=== PATIENT | female | born 2000 | race Caucasian/White ===

== ENCOUNTER 2019-02-17 08:35 | Emergency (ER) | payer BC ==
[2019-02-17 08:42] VITALS: RESP 18
[2019-02-17] MEDS ORDERED: ONDANSETRON 4 MG/2 ML VIAL IVP STA (08:55)
[2019-02-17] MEDS ORDERED: SODIUM CHLORIDE 0.9% 1,000 ML IV STA (08:55)
[2019-02-17] MEDS ORDERED: KETOROLAC 30 MG/ML 1 ML VIAL IVP STA (08:55)
[2019-02-17 09:15] LABS: Appearance,Urine Clear (Clear); Bilirubin,Urine Negative (Negative); Blood,Urine Negative (Negative); Color,Urine Colorless; Glucose,Urine (UA) Negative (Negative); Ketones,Urine Negative (Negative); Leukocyte Esterase,Urine Negative (Negative); Nitrite,Urine Negative (Negative); Protein,Urine Negative (Negative); Specific Gravity,Urine 1.002 (1.001-1.035); Urobilinogen,Urine <2.0 mg/dL (<2.0)
[2019-02-17 09:18] LABS: Basophils # (A) 0.1 k/uL (0-0.2); Basophils % (A) 1 %; Eosinophils # (A) 0.3 k/uL (0-0.7); Eosinophils % (A) 5 %; HCT 42.3 % (34.0-46.0); HGB 14.1 gm/dL (11.4-16.0); Lymphocytes # (A) 1.9 k/uL (1.0-4.8); Lymphocytes % (A) 33 %; MCH 29.8 pg (25.0-35.0); MCHC 33.4 g/dL (31.0-37.0); MCV 89.2 fL (80.0-100.0); Mean Platelet Volume 6.7; Monocytes # (A) 0.3 k/uL (0-1.0); Monocytes % (A) 5 %; Neutrophils # (A) 3.1 k/uL (1.3-7.7); Neutrophils % (A) 54 %; Platelet Count 213 k/uL (150-450); RBC 4.74 m/uL (3.80-5.40); WBC 5.8 k/uL (4.0-11.0)
--- NOTE | 2019-02-17 09:25 | ED ---
Abdominal Pain HPI - General Chief Complaint: Abdominal Pain Stated Complaint: Nausea/sharp abd pain Time Seen by Provider: 02/17/19 08:44 Source: patient Mode of arrival: ambulatory Limitations: no limitations - History of Present Illness Initial Comments: This 18-year-old female presents with a complaint of some abdominal pain and nausea. She states that she has had this for well over a year. It is intermittent in nature. She states that it is present primarily in her mid abdominal region. She denies any fevers, chills, constipation, diarrhea, or urinary symptoms. She does not believe she is as she took a home test a couple days ago and this was negative. She states that she saw her primary care physician and they prescribed. Nasal spray. She denies any other complaints or modifying factors. - Related Data Previous Rx's Medication Instructions Recorded Dicyclomine [Bentyl] 20 mg PO QID PRN #20 tablet 02/17/19 Ondansetron [Zofran] 4 mg PO Q8HR PRN #12 tab 02/17/19 Allergies Allergy/AdvReac Type Severity Reaction Status Date / Time No Known Allergies Allergy Verified 02/17/19 09:05 Review of Systems ROS Statement: Those systems with pertinent positive or pertinent negative responses have been documented in the HPI. ROS Other: All systems not noted in ROS Statement are negative. Past Medical History Past Medical History: No Reported History History of Any Multi-Drug Resistant Organisms: None Reported Past Surgical History: No Surgical Hx Reported Past Psychological History: Depression Smoking Status: Never smoker Past Alcohol Use History: None Reported Past Drug Use History: Marijuana General Exam - General Exam Comments Initial Comments: GENERAL: The patient is well nourished and well hydrated. VITAL SIGNS: Heart rate, blood pressure, respiratory rate reviewed as recorded in nurse's notes. EYES: Pupils are round and reactive. Extraocular movements are intact. No conjunctival / lid redness or swelling. ENT: No external evidence of injury, swelling, or ecchymosis. Airway is patent. Throat is clear. NECK: Nontender. No swelling or evidence of injury. No subcutaneous emphysema. Trachea is midline. No thyroid mass. HEART: Regular rate and rhythm. Good peripheral pulses. LUNGS/CHEST: Breath sounds clear and equal bilaterally. No rales, rhonchi, or wheezes. No ecchymosis, subcutaneous emphysema, or tenderness. ABDOMEN: There is very minimal tenderness present in the mid abdomen. No palpable masses or organomegaly. No peritoneal signs. No abdominal wall swelling or ecchymosis. EXTREMITIES: No extremity tenderness. Normal muscle tone and function. No thoracolumbar tenderness. NEUROLOGIC: Sensation is grossly intact. Cranial nerve exam reveals face is symmetrical, tongue is midline, speech is clear. SKIN: No abrasions or ecchymosis is noted. No induration or masses noted. PSYCHIATRIC: Alert and oriented. Appropriate behavior and judgment. Limitations: no limitations Course Vital Signs 02/17/19 08:38 Temperature 98.7 F Pulse Rate 96 Respiratory 18 Rate Blood Pressure 114/78 O2 Sat by Pulse 99 Oximetry Medical Decision Making - Medical Decision Making The patient was seen and examined. All diagnostics are reviewed. An IV is established and she receives Toradol and Zofran intravenously. The laboratory and urine all came back essentially within normal limits. The computed tomography scan of the abdomen and pelvis was negative for any acute process. She is in no distress on recheck. The exact cause of her symptoms are not definitively determined. There is a significant degree of chronicity. It is f elt as though the heart fairly consistent with irritable bowel syndrome. It is felt as though she stable for discharge and close follow-up. - Lab Data Result diagrams: 02/17/19 08:58 02/17/19 08:58 Lab Results 02/17/19 02/17/19 02/17/19 Range/Units 08:58 08:58 09:02 WBC 5.8 (4.0-11.0) k/uL RBC 4.74 (3.80-5.40) m/uL Hgb 14.1 (11.4-16.0) gm/dL Hct 42.3 (34.0-46.0) % MCV 89.2 (80.0-100.0) fL MCH 29.8 (25.0-35.0) pg MCHC 33.4 (31.0-37.0) g/dL RDW 12.0 (11.5-15.5) % Plt Count 213 (150-450) k/uL Neutrophils % 54 % Lymphocytes % 33 % Monocytes % 5 % Eosinophils % 5 % Basophils % 1 % Neutrophils # 3.1 (1.3-7.7) k/uL Lymphocytes # 1.9 (1.0-4.8) k/uL Monocytes # 0.3 (0-1.0) k/uL Eosinophils # 0.3 (0-0.7) k/uL Basophils # 0.1 (0-0.2) k/uL Sodium 141 (137-145) mmol/L Potassium 4.6 (3.5-5.1) mmol/L Chloride 105 (98-107) mmol/L Carbon Dioxide 27 (22-30) mmol/L Anion Gap 9 mmol/L BUN 15 (7-17) mg/dL Creatinine 0.79 (0.52-1.04) mg/dL Est GFR (CKD-EPI)AfAm >90 (>60 ml/min/1.73 sqM) Est GFR (CKD-EPI)NonAf >90 (>60 ml/min/1.73 sqM) Glucose 99 (74-99) mg/dL Calcium 9.6 (8.4-10.2) mg/dL Total Bilirubin 0.8 (0.2-1.3) mg/dL AST 15 (14-36) U/L ALT 14 (9-52) U/L Alkaline Phosphatase 49 (38-126) U/L Total Protein 7.7 (6.3-8.2) g/dL Albumin 4.5 (3.5-5.0) g/dL Lipase 83 (23-300) U/L Urine Color Urine Appearance (Clear) Urine pH (5.0-8.0) Ur Specific [place] (1.001-1.035) Urine Protein (Negative) Urine Glucose (UA) (Negative) Urine Ketones (Negative) Urine Blood (Negative) Urine Nitrite (Negative) Urine Bilirubin (Negative) Urine Urobilinogen (<2.0) mg/dL Ur Leukocyte Esterase (Negative) Urine HCG, Qual Not Detected (Not Detectd) 02/17/19 Range/Units 09:02 WBC (4.0-11.0) k/uL RBC (3.80-5.40) m/uL Hgb (11.4-16.0) gm/dL Hct (34.0-46.0) % MCV (80.0-100.0) fL MCH (25.0-35.0) pg MCHC (31.0-37.0) g/dL RDW (11.5-15.5) % Plt Count (150-450) k/uL Neutrophils % % Lymphocytes % % Monocytes % % Eosinophils % % Basophils % % Neutrophils # (1.3-7.7) k/uL Lymphocytes # (1.0-4.8) k/uL Monocytes # (0-1.0) k/uL Eosinophils # (0-0.7) k/uL Basophils # (0-0.2) k/uL Sodium (137-145) mmol/L Potassium (3.5-5.1) mmol/L Chloride (98-107) mmol/L Carbon Dioxide (22-30) mmol/L Anion Gap mmol/L BUN (7-17) mg/dL Creatinine (0.52-1.04) mg/dL Est GFR (CKD-EPI)AfAm (>60 ml/min/1.73 sqM) Est GFR (CKD-EPI)NonAf (>60 ml/min/1.73 sqM) Glucose (74-99) mg/dL Calcium (8.4-10.2) mg/dL Total Bilirubin (0.2-1.3) mg/dL AST (14-36) U/L ALT (9-52) U/L Alkaline Phosphatase (38-126) U/L Total Protein (6.3-8.2) g/dL Albumin (3.5-5.0) g/dL Lipase (23-300) U/L Urine Color Colorless Urine Appearance Clear (Clear) Urine pH 7.0 (5.0-8.0) Ur Specific [place] 1.002 (1.001-1.035) Urine Protein Negative (Negative) Urine Glucose (UA) Negative (Negative) Urine Ketones Negative (Negative) Urine Blood Negative (Negative) Urine Nitrite Negative (Negative) Urine Bilirubin Negative (Negative) Urine Urobilinogen <2.0 (<2.0) mg/dL Ur Leukocyte Esterase Negative (Negative) Urine HCG, Qual (Not Detectd) Disposition Clinical Impression: Abdominal pain, Nausea, Irritable bowel syndrome Disposition: HOME SELF-CARE Condition: Good Instructions (If sedation given, give patient instructions): Abdominal Pain (ED), Irritable Bowel Syndrome (ED), Acute Nausea and Vomiting (ED) Prescriptions: Dicyclomine [Bentyl] 20 mg PO QID PRN #20 tablet PRN Reason: Pain Ondansetron [Zofran] 4 mg PO Q8HR PRN #12 tab PRN Reason: Nausea Is patient prescribed a controlled substance at d/c from ED?: No Referrals: Lise Rizzo III, MD [Primary Care Provider] - 1-2 days Time of Disposition: 10:22
[2019-02-17 09:30] LABS: ALT 14 U/L (9-52); AST 15 U/L (14-36); African American GFR (CKD) >90 (>60 ml/min/1.73 sqM); Albumin 4.5 g/dL (3.5-5.0); Alkaline Phosphatase 49 U/L (38-126); Anion Gap 9 mmol/L; Blood Urea Nitrogen 15 mg/dL (7-17); Calcium 9.6 mg/dL (8.4-10.2); Carbon Dioxide 27 mmol/L (22-30); Chloride 105 mmol/L (98-107); Glucose 99 mg/dL (74-99); Potassium 4.6 mmol/L (3.5-5.1); Sodium 141 mmol/L (137-145); Total Bilirubin 0.8 mg/dL (0.2-1.3); Total Protein 7.7 g/dL (6.3-8.2)
--- NOTE | 2019-02-17 10:13 | CT ---
EXAMINATION TYPE: CT abdomen pelvis w con DATE OF EXAM: 02/17/2019 HISTORY: Nausea and sharp abdominal pain, below belly button CT DLP: 1514.8mGycm Automated Exposure Control for Dose Reduction was Utilized. CONTRAST: CT scan of the abdomen and pelvis is performed without oral but with IV Contrast, patient injected wi th 100 mL of Isovue 300. COMPARISON: None FINDINGS: LUNG BASES: No significant abnormality is appreciated. LIVER/GB: No significant abnormality is appreciated. PANCREAS: No significant abnormality is seen. SPLEEN: No significant abnormality is seen. ADRENALS: No significant abnormality is seen. KIDNEYS: No significant abnormality is seen. BOWEL: Evaluation bowel suboptimal secondary to lack of enteric contrast. No suspicious small or larg e bowel dilatation. Normal gas-filled appendix posteriorly from the cecum UTERUS/ADNEXA: Anteverted uterus. No adnexal masses. LYMPH NODES: No greater than 1cm abdominal or pelvic lymph nodes are appreciated. OSSEOUS STRUCTURES: No significant abnormality is seen. OTHER: No suspicious mass or hernia in the anterior abdominal wall. IMPRESSION: No significant acute finding is seen to account for patient's clinical symptoms.
[2019-02-17 10:36] VITALS: BP 111/62; PULSE 72; TEMP 98.1
== END 2019-02-17 10:32 | disposition home or self-care (01) ==
LOC: EC 08:35
DX: K58.9 Irritable bowel syndrome, unspecified (principal); Z32.02 Encounter for pregnancy test, result negative
CPT/HCPCS: 36415; 80053; 83690; 85025; 81003; 81025; 74177; 99284; 96360; Q9967

== ENCOUNTER 2019-08-19 04:50 | Emergency (ER) | payer BC ==
--- NOTE | 2019-08-19 06:01 | ED ---
Female Urogenital HPI - General Chief complaint: Vaginal Bleeding Stated complaint: vaginal bleeding,5 wk preg Time Seen by Provider: 08/19/19 04:58 Source: patient Mode of arrival: ambulatory Limitations: no limitations - History of Present Illness Initial comments: This patient is a 18 year old woman who presents to be evaluated for vaginal bleeding. The patient states that she is a G1, P0 lady. She recently took a home test that was positive and estimates that she is approximately 5 weeks . She has not had any care. She did start a vitamin. The patient states that over the past few days she had been having some suprapubic cramping that she felt was related to , and for which she did not seek any medical attention. She states that over the course of last night and today when she urinated she did note a couple of small blood clots and then there was some trace of pink on the paper when wiping. On further review, the patient states that a few weeks ago her boyfriend had been treated for epididymitis. She did not have any testing or treatment related to that. MD Complaint: vaginal bleeding -: hour(s) Location: suprapubic Severity: mild Quality: cramping Consistency: intermittent Improves with: none Worsens with: none Last Menstrual Period: 07/11/19 Patient : Yes Number of weeks : 5 Associated Symptoms: denies other symptoms, vaginal bleeding - Related Data Sexually active: Yes : 1 Para: 0 A: 0 Allergies Allergy/AdvReac Type Severity Reaction Status Date / Time No Known Allergies Allergy Verified 08/19/19 05:02 Review of Systems ROS Statement: Those systems with pertinent positive or pertinent negative responses have been documented in the HPI. ROS Other: All systems not noted in ROS Statement are negative. Constitutional: Denies: fever, chills Respiratory: Denies: cough, dyspnea Cardiovascular: Denies: chest pain Gastrointestinal: Reports: as per HPI, abdominal pain. Denies: nausea, vomiting, diarrhea, constipation Genitourinary: Reports: frequency, abnormal menses. Denies: dysuria, hematuria, discharge, dyspareunia Musculoskeletal: Denies: back pain Skin: Denies: rash Hematological/Lymphatic: Denies: easy bleeding Past Medical History Past Medical History: No Reported History History of Any Multi-Drug Resistant Organisms: None Reported Past Surgical History: No Surgical Hx Reported Past Psychological History: Depression Smoking Status: Former smoker Past Alcohol Use History: None Reported Past Drug Use History: Marijuana General Exam Limitations: no limitations General appearance: alert, in no apparent distress Head exam: Present: atraumatic, normocephalic Eye exam: Present: normal appearance. Absent: scleral icterus, conjunctival injection ENT exam: Present: normal oropharynx Respiratory exam: Present: normal lung sounds bilaterally. Absent: respiratory distress, wheezes, rales, rhonchi, stridor Cardiovascular Exam: Present: regular rate, normal rhythm, normal heart sounds. Absent: systolic murmur, diastolic murmur, rubs, gallop GI/Abdominal exam: Present: soft. Absent: distended, tenderness, guarding, rebound, rigid, mass External exam: Present: normal external exam. Absent: erythema, swelling, lesions, lacerations, ecchymosis, other Speculum exam: Present: normal speculum exam, vaginal bleeding (Trace amount of blood but no active cervical bleeding). Absent: erythema, vaginal discharge, cervical discharge, foreign body, tissue, laceration By manual exam: Present: normal by manual exam. Absent: cervical motion tenderness, adnexal tenderness, adnexal mass, uterine tenderness Extremities exam: Present: normal inspection Skin exam: Present: warm, dry, intact, normal color. Absent: rash Course Vital Signs 08/19/19 04:53 Temperature 98.0 F Pulse Rate 84 Respiratory 18 Rate Blood Pressure 126/69 O2 Sat by Pulse 100 Oximetry Medical Decision Making - Medical Decision Making 's patient is a 18-year-old woman with a small amount of vaginal bleeding in early . Her hCG indicates probably early versus possible miscarriage. I discussed results with the patient and at this point she is feeling asymptomatic and would like to go home. We discussed serial hCG and returning for ultrasound as the hCG level rises, or returning for ultrasound immediately if she has a recurrence of pelvic pain, increased bleeding, or other symptoms discussed. I discussed appropriate further care and follow-up as well as return parameters. Given the patient's possible STI exposure we discussed waiting for results versus empiric treatment and the patient does elect empiric treatment. - Lab Data Lab Results 08/19/19 08/19/19 08/19/19 Range/Units 05:40 05:40 05:51 HCG, Quant 181.5 mIU/mL Trichomonas Ag (Rapid) Negative (Negative) Blood Type A Negative Blood Type Recheck No Previous Record Bld Type Recheck Status [facility] ONLY Disposition Clinical Impression: Threatened Disposition: HOME SELF-CARE Condition: Good Instructions (If sedation given, give patient instructions): Threatened Miscarriage (ED) Is patient prescribed a controlled substance at d/c from ED?: No Referrals: None,Stated [Primary Care Provider] - 1-2 days Chandler Larios DO [Doctor of Osteopathic Medicine] - 1-2 days
[2019-08-19] MEDS ORDERED: cefTRIAXone 250 MG VIAL IM STA (06:19)
[2019-08-19] MEDS ORDERED: AZITHROMYCIN 250 MG TAB PO STA (06:19)
[2019-08-19 07:17] VITALS: BP 123/77; PULSE 94; RESP 16; TEMP 98.4
== END 2019-08-19 07:19 | disposition home or self-care (01) ==
LOC: EC 04:50
DX: O20.0 Threatened abortion (principal); Z87.891 Personal history of nicotine dependence; Z3A.01 Less than 8 weeks gestation of pregnancy
CPT/HCPCS: 36415; 86900; 86901; 84702; 87808; 87491; 87591; 87070; 96372; 99284; J0696

== ENCOUNTER 2019-08-20 15:13 | Emergency (ER) | payer BC, OTHER ==
[2019-08-20 15:20] VITALS: RESP 18; TEMP 98.2
[2019-08-20] MEDS ORDERED: Rhogam IMMUNE GLOBULIN 1,500 UNIT/1 ML IM ONE (16:00)
--- NOTE | 2019-08-20 16:20 | ED ---
Recheck HPI - General Chief Complaint: Recheck/Abnormal Lab/Rx Stated Complaint: abnormal labs Time Seen by Provider: 08/20/19 15:23 Source: patient, RN notes reviewed, old records reviewed Mode of arrival: ambulatory Limitations: no limitations - History of Present Illness Initial Comments: This is a 18-year-old female DF for evaluation patient is here for recheck recheck of vaginal bleeding of withdrawal being Rh-. Patient presents today for secondary to bleeding and being Rh-. Patient currently asymptomatic MD Complaint: abnormal lab (RH-) -: days(s) Returns Today for: Called Because of Abnormal Lab/Test Symptoms Since Prior Visit: no new symptoms Context: called for abnormal lab result Associated Symptoms: none - Related Data Home Medications Medication Instructions Recorded Confirmed Gummies 1 tab PO DAILY 08/20/19 08/20/19 Allergies Allergy/AdvReac Type Severity Reaction Status Date / Time No Known Allergies Allergy Verified 08/20/19 17:30 Review of Systems ROS Statement: Those systems with pertinent positive or pertinent negative responses have been documented in the HPI. ROS Other: All systems not noted in ROS Statement are negative. Past Medical History Past Medical History: No Reported History History of Any Multi-Drug Resistant Organisms: None Reported Past Surgical History: No Surgical Hx Reported Past Psychological History: Depression Smoking Status: Former smoker Past Alcohol Use History: None Reported Past Drug Use History: Marijuana General Exam Limitations: no limitations General appearance: alert, in no apparent distress Head exam: Present: atraumatic, normocephalic, normal inspection Eye exam: Present: normal appearance, PERRL, EOMI. Absent: scleral icterus, conjunctival injection, periorbital swelling ENT exam: Present: normal exam, mucous membranes moist Neck exam: Present: normal inspection. Absent: tenderness, meningismus, lymphad enopathy Respiratory exam: Present: normal lung sounds bilaterally. Absent: respiratory distress, wheezes, rales, rhonchi, stridor Cardiovascular Exam: Present: regular rate, normal rhythm, normal heart sounds. Absent: systolic murmur, diastolic murmur, rubs, gallop, clicks GI/Abdominal exam: Present: soft, normal bowel sounds. Absent: distended, tenderness, guarding, rebound, rigid Extremities exam: Present: normal inspection, full ROM, normal capillary refill. Absent: tenderness, pedal edema, joint swelling, calf tenderness Back exam: Present: normal inspection Neurological exam: Present: alert, oriented X3, CN II-XII intact Psychiatric exam: Present: normal affect, normal mood Skin exam: Present: warm, dry, intact, normal color. Absent: rash Course Vital Signs 08/20/19 15:16 Temperature 98.2 F Pulse Rate 85 Respiratory 18 Rate Blood Pressure 117/79 O2 Sat by Pulse 96 Oximetry - Reevaluation(s) Reevaluation #1: 08/20/19 17:40 Medical record is reviewed Reevaluation #2: 08/20/19 17:40 Patient given injection here in the ER Medical Decision Making - Medical Decision Making 18 female to the ER for evaluation patient presents today for evaluation and need for this is secondary to being Rh- and needing rhogram, also including bleeding in . - Lab Data Lab Results 08/20/19 Range/Units 16:23 Blood Type A Negative Blood Type Recheck A Neg Bld Type Recheck Status No Antibody Screen NEGATIVE Spec Expiration Date 08/23/2019 - 2322 Disposition Clinical Impression: Threatened , Need for rhogam due to Rh negative mother Disposition: HOME SELF-CARE Condition: Good Instructions (If sedation given, give patient instructions): Rh (By injection) Is patient prescribed a controlled substance at d/c from ED?: No Referrals: None,Stated [Primary Care Provider] - 1-2 days
[2019-08-20] MEDS ORDERED: ONDANSETRON ODT 4 MG TAB PO STA (16:58)
[2019-08-20 17:46] VITALS: BP 121/78; PULSE 80
== END 2019-08-20 17:45 | disposition home or self-care (01) ==
LOC: EC 15:13
DX: O20.0 Threatened abortion (principal); Z3A.00 Weeks of gestation of pregnancy not specified; Z29.13 Encounter for prophylactic Rho(D) immune globulin; Z87.891 Personal history of nicotine dependence
CPT/HCPCS: 96372; 99284; 86900; 86901; 86850; J2791

== ENCOUNTER 2019-08-22 05:53 | Emergency (ER) | payer BC, OTHER ==
[2019-08-22 06:05] VITALS: RESP 18; TEMP 98
[2019-08-22 07:03] LABS: Basophils % (A) 1 %; Eosinophils # (A) 0.2 k/uL (0-0.7); Eosinophils % (A) 3 %; HCT 41.2 % (34.0-46.0); HGB 14.1 gm/dL (11.4-16.0); Lymphocytes # (A) 1.9 k/uL (1.0-4.8); Lymphocytes % (A) 29 %; MCH 28.7 pg (25.0-35.0); MCHC 34.2 g/dL (31.0-37.0); MCV 83.9 fL (80.0-100.0); Mean Platelet Volume 8.3; Monocytes # (A) 0.4 k/uL (0-1.0); Monocytes % (A) 6 %; Neutrophils # (A) 3.9 k/uL (1.3-7.7); Neutrophils % (A) 60 %; Platelet Count 186 k/uL (150-450); RBC 4.91 m/uL (3.80-5.40); RDW 12.7 % (11.5-15.5); WBC 6.5 k/uL (4.0-11.0)
[2019-08-22 07:15] LABS: African American GFR (CKD) >90 (>60 ml/min/1.73 sqM); Anion Gap 9 mmol/L; Blood Urea Nitrogen 18 mg/dL (7-17); Calcium 9.6 mg/dL (8.4-10.2); Carbon Dioxide 24 mmol/L (22-30); Chloride 105 mmol/L (98-107); Glucose 95 mg/dL (74-99); Non-African American GFR(CKD) >90 (>60 ml/min/1.73 sqM); Potassium 4.2 mmol/L (3.5-5.1); Sodium 138 mmol/L (137-145)
--- NOTE | 2019-08-22 07:26 | ED ---
General Adult HPI - General Chief complaint: Vaginal Bleeding Stated complaint: vaginal bleeding, 6 wks preg Time Seen by Provider: 08/22/19 06:20 Source: patient, RN notes reviewed, old records reviewed Mode of arrival: ambulatory Limitations: no limitations - History of Present Illness Initial comments: 18-year-old female patient presents to ED for chief complaint of vaginal bleeding. Patient reports that she is approximately 6 weeks by last menstrual period. She reports that she has been seen on the and the for vaginal bleeding. She did have a RhoGAM shot administered. She states that she does have some very mild suprapubic cramping but denies any significant pain. Reports that she has been passing small clots and believes that she may be potentially miscarrying. HCG Quant was 181 on 08/18. She has not had an ultrasound. She denies any other acute complaints. Systemic: Pt denies fatigue, fever/chills, rash. Pt denies weakness, night sweats, weight loss. Neuro: Pt denies headache, visual disturbances, syncope or pre-syncope. HEENT: Pt denies ocular discharge or irritation, otalgia, rhinorrhea, pharyngitis or notable lymphadenopathy. Cardiopulmonary: Pt denies chest pain, SOB, heart palpitations, dyspnea on e xertion. Abdominal/GI: Pt denies n/v/d. : Pt denies dysuria, burning w/ urination, frequency/urgency. Denies new onset urinary or bowel incontinence. MSK: Pt denies myalgia, loss of strength or function in extremities. Neuro: Pt denies new onset weakness, paresthesias. - Related Data Home Medications Medication Instructions Recorded Confirmed Gummies 1 tab PO DAILY 08/20/19 08/20/19 Allergies Allergy/AdvReac Type Severity Reaction Status Date / Time No Known Allergies Allergy Verified 08/20/19 17:30 Review of Systems ROS Statement: Those systems with pertinent positive or pertinent negative responses have been documented in the HPI. ROS Other: All systems not noted in ROS Statement are negative. Past Medical History Past Medical History: No Reported History History of Any Multi-Drug Resistant Organisms: None Reported Past Surgical History: No Surgical Hx Reported Past Psychological History: Depression Smoking Status: Former smoker Past Alcohol Use History: None Reported Past Drug Use History: Marijuana General Exam - General Exam Comments Initial Comments: Constitutional: NAD, AOX3, Pt has pleasant affect. HEENT: NC/AT, trachea midline, External ears appear normal, without discharge. Mucous membranes moist. There is no scleral icterus. No pallor noted. Cardiopulmonary: RRR, no murmurs, rubs or gallops, no JVD noted. Lungs CTAB in anterior and posterior elena. No peripheral edema. Abdominal exam: Abdomen soft and non-distended. Abdomen non-tender to palpation in all 4 quadrants. Bowel sounds active in LLQ. No hepatosplenomegaly. No ecchymosis Neuro: CN II-XII grossly intact. No nuchal rigidity. No raccon eyes, no love sign, Limitations: no limitations Course Vital Signs 08/22/19 05:56 Temperature 98.0 F Pulse Rate 102 H Respiratory 18 Rate Blood Pressure 115/76 O2 Sat by Pulse 100 Oximetry Medical Decision Making - Medical Decision Making 18-year-old female patient presents to ED for chief complaint of vaginal bleeding. Patient reports that she is approximately 6 weeks by last menstrual period. She reports that she has been seen on the and the for vaginal bleeding. She did have a RhoGAM shot administered. She states that she does have some very mild suprapubic cramping but denies any significant pain. Reports that she has been passing small clots and believes that she may be potentially miscarrying. HCG Quant was 181 on 08/18. She has not had an ultrasound. She denies any other acute complaints. Patient also signs are stable, afebrile. Physical exam displayed nontender abdomen. CBC CMP are non- impressive. HCG Quant is 91.9. Decreased in half. Ultrasound identified intrauterine anterior gestation at this time. Short-term follow-up recommended. She does appear to be miscarrying. Patient will be provided 48-hour hCG Quant. Will be given OB follow-up she has already been in contact with. Patient does not currently have PCP, will be referred to a local group. Return to ER if condition worsens. Case discussed with Dr. Bolivar. - Lab Data Result diagrams: 08/22/19 06:58 08/22/19 06:58 Lab Results 08/22/19 08/22/19 Range/Units 06:58 06:58 WBC 6.5 (4.0-11.0) k/uL RBC 4.91 (3.80-5.40) m/uL Hgb 14.1 (11.4-16.0) gm/dL Hct 41.2 (34.0-46.0) % MCV 83.9 (80.0-100.0) fL MCH 28.7 (25.0-35.0) pg MCHC 34.2 (31.0-37.0) g/dL RDW 12.7 (11.5-15.5) % Plt Count 186 (150-450) k/uL Neutrophils % 60 % Lymphocytes % 29 % Monocytes % 6 % Eosinophils % 3 % Basophils % 1 % Neutrophils # 3.9 (1.3-7.7) k/uL Lymphocytes # 1.9 (1.0-4.8) k/uL Monocytes # 0.4 (0-1.0) k/uL Eosinophils # 0.2 (0-0.7) k/uL Basophils # 0.0 (0-0.2) k/uL Sodium 138 (137-145) mmol/L Potassium 4.2 (3.5-5.1) mmol/L Chloride 105 (98-107) mmol/L Carbon Dioxide 24 (22-30) mmol/L Anion Gap 9 mmol/L BUN 18 H (7-17) mg/dL Creatinine 0.77 (0.52-1.04) mg/dL Est GFR (CKD-EPI)AfAm >90 (>60 ml/min/1.73 sqM) Est GFR (CKD-EPI)NonAf >90 (>60 ml/min/1.73 sqM) Glucose 95 (74-99) mg/dL Calcium 9.6 (8.4-10.2) mg/dL HCG, Quant 91.9 mIU/mL Disposition Clinical Impression: Miscarriage Disposition: HOME SELF-CARE Condition: Stable Instructions (If sedation given, give patient instructions): Miscarriage (ED) Additional Instructions: Call [facility] [employer] today. Information is provided. Have repeat blood draw in 48 hours. Results will be sent to [facility] [employer] consult Dr. Alatorre. You will also be provided with a local primary care physician groups information. Return to ER if condition worsens in any way. Is patient prescribed a controlled substance at d/c from ED?: No Referrals: None,Stated [Primary Care Provider] - 1-2 days Luzma Alatorre, [Doctor of Osteopathic Medicine] - 1-2 days
[2019-08-22 07:32] LABS: HCG,Quantitative Serum 91.9 mIU/mL
--- NOTE | 2019-08-22 07:32 | US ---
EXAMINATION TYPE: Transabdominal DATE OF EXAM: 08/22/2019 7:23 AM COMPARISON: NONE CLINICAL HISTORY: pain. EXAM PERFORMED: Transabdominal (TA) EXAM MEASUREMENTS: GESTATIONAL AGE / DATING Physician Established: Not yet established Dates by LMP: (6 weeks/0 days) EDC: 04/16/20 Dates by First Scan: No previous this is first scan Dates by Current Scan for: Unable to date by stacy patel's study MATERNAL ANATOMY Uterus: 8.4 x 3.5 x 4.9cm Right Ovary: 2.6 x 1.2 x 1.1cm Left Ovary: 1.6 x 1.1 x 1.3 Post CDS / Adnexa: wnl GESTATION / SURVEY IUP: No IUP seen at this time Date of LMP: 07/11/19 Beta HcG (if available): Not available at this time IMPRESSION: WE HAVE NOT IDENTIFIED INTRAUTERINE OR EXTRAUTERINE GESTATION AT THIS TIME. SHORT-TERM FOLLOW-UP +/- SERIAL BETA HCGS WOULD BE SUGGESTED.
--- NOTE | 2019-08-22 07:56 | ED ---
Medical Decision Making - Lab Data Result diagrams: 08/22/19 06:58 08/22/19 06:58 Lab Results 08/22/19 08/22/19 Range/Units 06:58 06:58 WBC 6.5 (4.0-11.0) k/uL RBC 4.91 (3.80-5.40) m/uL Hgb 14.1 (11.4-16.0) gm/dL Hct 41.2 (34.0-46.0) % MCV 83.9 (80.0-100.0) fL MCH 28.7 (25.0-35.0) pg MCHC 34.2 (31.0-37.0) g/dL RDW 12.7 (11.5-15.5) % Plt Count 186 (150-450) k/uL Neutrophils % 60 % Lymphocytes % 29 % Monocytes % 6 % Eosinophils % 3 % Basophils % 1 % Neutrophils # 3.9 (1.3-7.7) k/uL Lymphocytes # 1.9 (1.0-4.8) k/uL Monocytes # 0.4 (0-1.0) k/uL Eosinophils # 0.2 (0-0.7) k/uL Basophils # 0.0 (0-0.2) k/uL Sodium 138 (137-145) mmol/L Potassium 4.2 (3.5-5.1) mmol/L Chloride 105 (98-107) mmol/L Carbon Dioxide 24 (22-30) mmol/L Anion Gap 9 mmol/L BUN 18 H (7-17) mg/dL Creatinine 0.77 (0.52-1.04) mg/dL Est GFR (CKD-EPI)AfAm >90 (>60 ml/min/1.73 sqM) Est GFR (CKD-EPI)NonAf >90 (>60 ml/min/1.73 sqM) Glucose 95 (74-99) mg/dL Calcium 9.6 (8.4-10.2) mg/dL HCG, Quant 91.9 mIU/mL Disposition Clinical Impression: Miscarriage Disposition: HOME SELF-CARE Condition: Stable Instructions (If sedation given, give patient instructions): Miscarriage (ED) Additional Instructions: Call [facility] today. Information is provided. Have repeat blood draw in 48 hours. Results will be sent to [facility] consult Dr. Alatorre. You will also be provided with a local primary care physician groups information. Return to ER if condition worsens in any way. Is patient prescribed a controlled substance at d/c from ED?: No Referrals: Luzma Alatorre DO [Doctor of Osteopathic Medicine] - 1-2 days None,Stated [Primary Care Provider] - 1-2 days [facility] [NON-STAFF] - 1-2 days
[2019-08-22 08:10] VITALS: BP 118/72; PULSE 99
== END 2019-08-22 08:14 | disposition home or self-care (01) ==
LOC: EC 05:53
DX: O03.9 Complete or unspecified spontaneous abortion without complication (principal); Z87.891 Personal history of nicotine dependence
CPT/HCPCS: 36415; 76801; 80048; 84702; 85025; 99284

== ENCOUNTER 2021-01-20 17:50 | Emergency (ER) | payer BC, OTHER ==
[2021-01-20 18:22] VITALS: RESP 18
[2021-01-20] MEDS ORDERED: SODIUM CHLORIDE 0.9% 1,000 ML IV STA (19:27)
--- NOTE | 2021-01-20 19:42 | ED ---
General Adult HPI - General Chief complaint: Syncope Stated complaint: 19wks Preg/Syncope/Hit Head Time Seen by Provider: 01/20/21 19:05 Source: patient Mode of arrival: ambulatory Limitations: no limitations - History of Present Illness Initial comments: 20-year-old female, 19 weeks , presenting to the emergency department with a chief complaint of a syncopal episode. Patient reports this occurred while she was at work. Patient reports she was taking orders and then began to feel lightheaded and as she attempted to go sit down, she lost consciousness and neck since she could Romberg or her friend surrounding her after she suffered a syncopal episode. Patient reports his pain in the occipital region of her head. States she otherwise feels a symptom medical at this time aside from pain in the head. Denies any chest pain shortness of breath. Denies any abdominal pain, cramping, vaginal discharge or bleeding or any other symptoms. Denies any visual changes, one-sided weakness or paresthesias. Her OB is Dr. Edwards - Related Data Home Medications Medication Instructions Recorded Confirmed Gummies 1 tab PO DAILY 08/20/19 08/20/19 Allergies Allergy/AdvReac Type Severity Reaction Status Date / Time No Known Allergies Allergy Verified 08/20/19 17:30 Review of Systems ROS Statement: Those systems with pertinent positive or pertinent negative responses have been documented in the HPI. ROS Other: All systems not noted in ROS Statement are negative. Past Medical History Past Medical History: No Reported History History of Any Multi-Drug Resistant Organisms: None Reported Past Surgical History: No Surgical Hx Reported Past Psychological History: Depression Smoking Status: Never smoker Past Alcohol Use History: None Reported Past Drug Use History: Marijuana General Exam Limitations: no limitations General appearance: alert, in no apparent distress Head exam: Present: atraumatic, normocephalic. Absent: normal inspection (Small hematoma on the occipital region of the head), other (Negative Syed sign, raccoon eyes, hemotympanum.) Eye exam: Present: normal appearance, PERRL, EOMI Pupils: Present: normal accommodation ENT exam: Present: normal exam, normal oropharynx, mucous membranes moist, TM's normal bilaterally, normal external ear exam Neck exam: Present: normal inspection, full ROM. Absent: tenderness, lymphadenopathy Respiratory exam: Present: normal lung sounds bilaterally. Absent: respiratory distress Cardiovascular Exam: Present: regular rate, normal rhythm, normal heart sounds. Absent: systolic murmur GI/Abdominal exam: Present: soft. Absent: distended, tenderness Extremities exam: Present: normal inspection, full ROM, normal capillary refill, other (Palpable DP and PT bilaterally). Absent: tenderness, pedal edema, joint swelling, calf tenderness Back exam: Present: normal inspection, full ROM Neurological exam: Present: alert, oriented X3 Psychiatric exam: Present: normal affect, normal mood Skin exam: Present: warm, dry, intact, normal color Course Vital Signs 01/20/21 01/20/21 01/20/21 18:19 19:00 21:22 Temperature 98.6 F 98.0 F Pulse Rate 109 H 76 74 Respiratory 18 18 18 Rate Blood Pressure 120/78 115/75 115/82 O2 Sat by Pulse 97 97 98 Oximetry Medical Decision Making - Medical Decision Making 20-year-old female, 19 weeks , presenting to the emergency department with a chief complaint of a syncopal episode. On physical examination, patient is well appearing and resting comfortably but. No focal ne ural deficits. EKG changes were noted and this was discussed with Dr. Benson recommended further syncopal workup. She does have a small hematoma in the occipital region of the head. CBC shows mild leukocytosis likely reactive secondary to her . She cannot give a urine sample. CMP Un remarkable. HCG Quant is 7400. Troponin is negative. Patient was given 1 L IV bolus fluids. Vital signs are within normal limits. CT imaging of the head was offered to the patient, I did discuss the concern of radiation, she declined imaging. Patient continued to be completely asymptomatic in the emergency department. Her chest pain shortness of breath abdominal or vaginal symptoms. I did offer heart tones to the patient, she declined because she did not want to wait any further and stated that she will return to emergency department if she develops any symptoms. Follow up with her OB advised. Return parameters were thoroughly discussed the patient was understanding and agreeable. Case discussed with Dr. Benson. - Lab Data Result diagrams: 01/20/21 19:29 01/20/21 19:29 Lab Results 01/20/21 01/20/21 01/20/21 Range/Units 19:28 19:29 19:29 WBC 11.4 H (3.8-10.6) k/uL RBC 4.63 (3.80-5.40) m/uL Hgb 14.1 (11.4-16.0) gm/dL Hct 40.7 (34.0-46.0) % MCV 88.1 (80.0-100.0) fL MCH 30.5 (25.0-35.0) pg MCHC 34.6 (31.0-37.0) g/dL RDW 13.0 (11.5-15.5) % Plt Count 233 (150-450) k/uL MPV 9.0 Neutrophils % 81 % Lymphocytes % 13 % Monocytes % 4 % Eosinophils % 1 % Basophils % 0 % Neutrophils # 9.2 H (1.3-7.7) k/uL Lymphocytes # 1.4 (1.0-4.8) k/uL Monocytes # 0.5 (0-1.0) k/uL Eosinophils # 0.1 (0-0.7) k/uL Basophils # 0.0 (0-0.2) k/uL PT 9.7 (9.0-12.0) sec INR 0.9 (<1.2) APTT 21.3 L (22.0-30.0) sec Sodium (137-145) mmol/L Potassium (3.5-5.1) mmol/L Chloride (98-107) mmol/L Carbon Dioxide (22-30) mmol/L Anion Gap mmol/L BUN (7-17) mg/dL Creatinine (0.52-1.04) mg/dL Est GFR (CKD-EPI)AfAm (>60 ml/min/1.73 sqM) Est GFR (CKD-EPI)NonAf (>60 ml/min/1.73 sqM) Glucose (74-99) mg/dL Calcium (8.4-10.2) mg/dL Magnesium (1.6-2.3) mg/dL Total Bilirubin (0.2-1.3) mg/dL AST (14-36) U/L ALT (4-34) U/L Alkaline Phosphatase (38-126) U/L Troponin I (0.000-0.034) ng/mL Total Protein (6.3-8.2) g/dL Albumin (3.5-5.0) g/dL HCG, Quant mIU/mL Urine Color Yellow Urine Appearance Cloudy H (Clear) Urine pH 5.5 (5.0-8.0) Ur Specific [place] 1.025 (1.001-1.035) Urine Protein 1+ H (Negative) Urine Glucose (UA) Negative (Negative) Urine Ketones 1+ H (Negative) Urine Blood Negative (Negative) Urine Nitrite Negative (Negative) Urine Bilirubin Negative (Negative) Urine Urobilinogen <2.0 (<2.0) mg/dL Ur Leukocyte Esterase Small H (Negative) Urine RBC 1 (0-5) /hpf Urine WBC 8 H (0-5) /hpf Ur Squamous Epith Cells 19 H (0-4) /hpf Amorphous Sediment Rare H (None) /hpf Urine Mucus Many H (None) /hpf 01/20/21 01/20/21 Range/Units 19:29 19:29 WBC (3.8-10.6) k/uL RBC (3.80-5.40) m/uL Hgb (11.4-16.0) gm/dL Hct (34.0-46.0) % MCV (80.0-100.0) fL MCH (25.0-35.0) pg MCHC (31.0-37.0) g/dL RDW (11.5-15.5) % Plt Count (150-450) k/uL MPV Neutrophils % % Lymphocytes % % Monocytes % % Eosinophils % % Basophils % % Neutrophils # (1.3-7.7) k/uL Lymphocytes # (1.0-4.8) k/uL Monocytes # (0-1.0) k/uL Eosinophils # (0-0.7) k/uL Basophils # (0-0.2) k/uL PT (9.0-12.0) sec INR (<1.2) APTT (22.0-30.0) sec Sodium 135 L (137-145) mmol/L Potassium 4.1 (3.5-5.1) mmol/L Chloride 104 (98-107) mmol/L Carbon Dioxide 22 (22-30) mmol/L Anion Gap 9 mmol/L BUN 9 (7-17) mg/dL Creatinine 0.62 (0.52-1.04) mg/dL Est GFR (CKD-EPI)AfAm >90 (>60 ml/min/1.73 sqM) Est GFR (CKD-EPI)NonAf >90 (>60 ml/min/1.73 sqM) Glucose 86 (74-99) mg/dL Calcium 9.5 (8.4-10.2) mg/dL Magnesium 1.8 (1.6-2.3) mg/dL Total Bilirubin 0.8 (0.2-1.3) mg/dL AST 32 (14-36) U/L ALT 31 (4-34) U/L Alkaline Phosphatase 61 (38-126) U/L Troponin I <0.012 (0.000-0.034) ng/mL Total Protein 7.4 (6.3-8.2) g/dL Albumin 4.2 (3.5-5.0) g/dL HCG, Quant 7472.1 mIU/mL Urine Color Urine Appearance (Clear) Urine pH (5.0-8.0) Ur Specific [place] (1.001-1.035) Urine Protein (Negative) Urine Glucose (UA) (Negative) Urine Ketones (Negative) Urine Blood (Negative) Urine Nitrite (Negative) Urine Bilirubin (Negative) Urine Urobilinogen (<2.0) mg/dL Ur Leukocyte Esterase (Negative) Urine RBC (0-5) /hpf Urine WBC (0-5) /hpf Ur Squamous Epith Cells (0-4) /hpf Amorphous Sediment (None) /hpf Urine Mucus (None) /hpf Disposition Clinical Impression: Syncope, Dehydration Disposition: HOME SELF-CARE Condition: Stable Instructions (If sedation given, give patient instructions): Syncope (DC) Additional Instructions: Follow-up with your OB. Return to emergency department if symptoms worsen. Stay plenty hydrated. Is patient prescribed a controlled substance at d/c from ED?: No Referrals: None,Stated [Primary Care Provider] - 1-2 days Time of Disposition: 21:45
[2021-01-20 19:56] LABS: ALT 31 U/L (4-34); AST 32 U/L (14-36); African American GFR (CKD) >90 (>60 ml/min/1.73 sqM); Albumin 4.2 g/dL (3.5-5.0); Alkaline Phosphatase 61 U/L (38-126); Anion Gap 9 mmol/L; Blood Urea Nitrogen 9 mg/dL (7-17); Calcium 9.5 mg/dL (8.4-10.2); Carbon Dioxide 22 mmol/L (22-30); Chloride 104 mmol/L (98-107); Glucose 86 mg/dL (74-99); Magnesium 1.8 mg/dL (1.6-2.3); Non-African American GFR(CKD) >90 (>60 ml/min/1.73 sqM); Potassium 4.1 mmol/L (3.5-5.1); Sodium 135 mmol/L (137-145); Total Bilirubin 0.8 mg/dL (0.2-1.3); Total Protein 7.4 g/dL (6.3-8.2)
[2021-01-20 20:00] LABS: Amorphous Sediment,Urine Rare /hpf; Appearance,Urine Cloudy (Clear); Bilirubin,Urine Negative (Negative); Blood,Urine Negative (Negative); Color,Urine Yellow; Glucose,Urine (UA) Negative (Negative); Ketones,Urine 1+ (Negative); Leukocyte Esterase,Urine Small (Negative); Mucus,Urine Many /hpf; Nitrite,Urine Negative (Negative); PH, Urine 5.5 (5.0-8.0); Protein,Urine 1+ (Negative); RBC,Urine 1 /hpf (0-5); Specific Gravity,Urine 1.025 (1.001-1.035); Squamous Epithelial Cell,Urine 19 /hpf (0-4); Urobilinogen,Urine <2.0 mg/dL (<2.0); WBC,Urine 8 /hpf (0-5)
[2021-01-20 20:05] LABS: Basophils % (A) 0 %; Eosinophils # (A) 0.1 k/uL (0-0.7); Eosinophils % (A) 1 %; HCT 40.7 % (34.0-46.0); HGB 14.1 gm/dL (11.4-16.0); Lymphocytes # (A) 1.4 k/uL (1.0-4.8); Lymphocytes % (A) 13 %; MCH 30.5 pg (25.0-35.0); MCHC 34.6 g/dL (31.0-37.0); MCV 88.1 fL (80.0-100.0); Monocytes # (A) 0.5 k/uL (0-1.0); Monocytes % (A) 4 %; Neutrophils # (A) 9.2 k/uL (1.3-7.7); Neutrophils % (A) 81 %; Platelet Count 233 k/uL (150-450); RBC 4.63 m/uL (3.80-5.40); WBC 11.4 k/uL (3.8-10.6)
[2021-01-20 20:12] LABS: HCG,Quantitative Serum 7472.1 mIU/mL
[2021-01-20 20:14] LABS: INR 0.9 (<1.2); Partial Thromboplastin Time 21.3 sec (22.0-30.0); Prothrombin Time 9.7 sec (9.0-12.0)
[2021-01-20 21:23] VITALS: BP 115/82; PULSE 74; TEMP 98
== END 2021-01-20 21:58 | disposition home or self-care (01) ==
LOC: EC 17:50
DX: O99.282 Endocrine, nutritional and metabolic diseases complicating pregnancy, second trimester (principal); O26.812 Pregnancy related exhaustion and fatigue, second trimester; E86.0 Dehydration; R55 Syncope and collapse; F32.9 Major depressive disorder, single episode, unspecified; F12.90 Cannabis use, unspecified, uncomplicated; Z3A.19 19 weeks gestation of pregnancy
CPT/HCPCS: 36415; 80053; 81001; 83735; 84484; 84702; 85025; 85610; 85730; 93005; 96360; 99284

== ENCOUNTER 2021-01-30 15:20 | Outpatient (CLI) | payer OTHER ==
[2021-01-30 15:46] VITALS: BP 114/53; PULSE 75; RESP 16; TEMP 98.6
--- NOTE | 2021-01-31 09:11 | P.MSEPDOC ---
Presenting Problems - Arrival Data Date of Arrival on Unit: 01/30/21 Time of Arrival on Unit: 15:20 Mode of Transport: Ambulatory - Complaint OB-Reason for Admission/Chief Complaint: Decreased Movement Comment: 20 4/7 weeks Medical History - Information : 3 Para: 0 Term: 0 : 0 Abortions: Spontaneous or Elective: 2 Number of Living Children: 0 - Gestational Age Gestational Age by ALEX (wks/days): 20 Weeks and 4 Days Review of Systems - Review of Systems Constitutional: No problems Breast: No problems ENT: No problems Cardiovascular: No problems Respiratory: No problems Gastrointestinal: No problems Genitourinary: No problems Musculoskeletal: No problems Neurological: No problems Skin: No problems Vital Signs - Temperature Temperature: 98.6 F Temperature Source: Oral - Pulse Right Pulse Rate: 75 Pulse Assessment Method: Automatic Cuff - Respirations Respiratory Rate: 16 Oxygen Delivery Method: Room Air O2 Sat by Pulse Oximetry: 97 - Blood Pressure Right Arm Blood Pressure: 114/53 Blood Pressure Mean: 73 Blood Pressure Source: Automatic Cuff Physician Notification - Physician Notified Physician Notified Date: 01/30/21 Physician Notified Time: 15:45 Physician: Leobardo Valverde Order Received: Yes (discharge) Maternal Triage Index - Maternal Triage Index Presenting for scheduled procedure w/no complaint: No - Stat/Priority 1 Stat Priority 1: No - Urgent/Priority 2 Urgent Priority 2: No - Prompt/Priority 3 Prompt Priority 3: No - Non-Urgent/Priority 4 Non-Urgent Priority 4: Yes Criteria Met for Priority 4: 20 weeks decreased movement Disposition - Disposition OB Disposition: Discharge to home Discharge Date: 01/30/21 Discharge Time: 15:55 I agree with the RN Medical Screening Exam: Yes Case reviewed; plan agreed upon as documented in EMR&OBIX.: Yes Diagnosis: DECREASED MOVEMENTS, SECOND TRIMESTER, FETUS 1
== END 2021-01-30 15:50 | disposition home or self-care (01) ==
LOC: FBPOP 15:20
PROVIDERS: ATTEND Obstetrics & Gynecology
DX: O36.8121 Decreased fetal movements, second trimester, fetus 1 (principal); Z3A.20 20 weeks gestation of pregnancy; Z87.891 Personal history of nicotine dependence
CPT/HCPCS: 99213

== ENCOUNTER 2021-05-29 14:12 | Inpatient (IN) | payer OTHER ==
[2021-05-29 14:54] LABS: Basophils % (A) 0 %; Eosinophils # (A) 0.1 k/uL (0-0.7); Eosinophils % (A) 1 %; HCT 38.3 % (34.0-46.0); HGB 12.7 gm/dL (11.4-16.0); Lymphocytes # (A) 1.7 k/uL (1.0-4.8); Lymphocytes % (A) 19 %; MCH 29.5 pg (25.0-35.0); MCHC 33.1 g/dL (31.0-37.0); MCV 89.3 fL (80.0-100.0); Mean Platelet Volume 10.4; Monocytes # (A) 0.4 k/uL (0-1.0); Monocytes % (A) 5 %; Neutrophils # (A) 6.6 k/uL (1.3-7.7); Neutrophils % (A) 74 %; Platelet Count 221 k/uL (150-450); RBC 4.29 m/uL (3.80-5.40)
[2021-05-29 15:04] LABS: ALT 21 U/L (4-34); AST 25 U/L (14-36); African American GFR (CKD) >90 (>60 ml/min/1.73 sqM); Blood Urea Nitrogen 11 mg/dL (7-17); LDH 368 U/L (313-618); Non-African American GFR(CKD) >90 (>60 ml/min/1.73 sqM); Uric Acid 4.7 mg/dL (3.7-7.4)
[2021-05-29 16:19] LABS: Appearance,Urine Clear (Clear); Bilirubin,Urine Negative (Negative); Blood,Urine Negative (Negative); Color,Urine Yellow; Glucose,Urine (UA) Negative (Negative); Ketones,Urine Negative (Negative); Leukocyte Esterase,Urine Negative (Negative); Nitrite,Urine Negative (Negative); Protein,Urine Trace (Negative); Specific Gravity,Urine 1.028 (1.001-1.035); Urobilinogen,Urine <2.0 mg/dL (<2.0)
[2021-05-29 17:41] LABS: Creatinine,Urine Random 261.6 mg/dL
[2021-05-29] MEDS ORDERED: LIDOCAINE 1% (PF) 10 MG/ML (30 ML SDV) SQ PRN (19:48)
[2021-05-29] MEDS ORDERED: OXYTOCIN 10 UNIT/ML 1 ML VIAL IM PRN (19:48)
[2021-05-29] MEDS ORDERED: CARBOPROST TROMETHAMINE 250 MCG/ML 1 ML AMP IM PRN (19:48)
[2021-05-29] MEDS ORDERED: METHYLERGONOVINE 0.2 MG/ML 1 ML AMP IM PRN (19:48)
[2021-05-29] MEDS ORDERED: TERBUTALINE 1 MG/ML VIAL SQ PRN (19:48)
--- NOTE | 2021-05-29 21:09 | P.HPOB ---
History of Present Illness H&P Date: 05/29/21 Chief Complaint: Gestational hypertension This is a 20 y.o. female, 3, para 0, with an estimated date of confinement of 06/15/2021, estimated gestational age of 37-4/7 weeks who presents for evaluation of hypertension noted at visit today. Her BP was noted to be 144/92. Her labs in triage were all normal, however her blood pressures were elevated with a couple in the severe range. She denies headaches, blurred vision, or epigastric pain. She does have occasional nausea and vomiting, but this has been better over the last week. She also complains of hip pain and difficulty walking. She is feeling occasional contractions. labs: Hepatitis B surface antigen-neg RPR-NR Rubella-immune Blood type-A neg Antibody screen-neg Rhogam given at 26 weeks Toxoplasma-neg Random glucose-80 Quad-neg 1 hr. GTT-85 GBS-neg OB Hx: . History of 1 miscarriage, 1 termination. 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 Off work currently. Review of Systems Constitutional: Denies chills, Denies fever Eyes: denies blurred vision, denies pain Ears, nose, mouth and throat: Denies headache, Denies sore throat Cardiovascular: Denies chest pain, Denies shortness of breath Respiratory: Denies cough Gastrointestinal: Reports abdominal pain (irregular contractions) Genitourinary: Reports pelvic pain, Reports Musculoskeletal: Reports low back pain, Reports myalgias Integumentary: Denies pruritus, Denies rash Neurological: Denies numbness, Denies weakness Psychiatric: Reports anxiety, Reports depression Past Medical History Past Medical History: No Reported History History of Any Multi-Drug Resistant Organisms: None Reported Past Surgical History: No Surgical Hx Reported Past Anesthesia/Blood Transfusion Reactions: No Reported Reaction Past Psychological History: Anxiety, Depression Smoking Status: Former smoker Past Alcohol Use History: Occasional Past Drug Use History: Marijuana - Past Family History Brother(s) Additional Family Medical History / Comment(s): Autism Medications and Allergies Home Medications Medication Instructions Recorded Confirmed Type No Known Home Medications 05/29/21 05/29/21 History Allergies Allergy/AdvReac Type Severity Reaction Status Date / Time No Known Allergies Allergy Verified 05/29/21 14:24 Exam Osteopathic Statement: *. No significant issues noted on an osteopathic structural exam other than those noted in the History and Physical/Consult. Vital Signs Temp Pulse Resp BP Pulse Ox 05/29/21 14:23 98.3 F 107 H 16 137/84 98 Intake and Output 05/29/21 05/29/21 05/29/21 06:59 14:59 22:59 Other: Weight 123.377 kg HEENT: within normal limits Heart: regular rate and rhythm Lungs: clear to auscultation bilaterally Abdomen: , non-tender Cervix: 1 cm/50%/-2 heart tones: 150's by doppler Extremities: neg. Pankaj's Results Result Diagrams: 05/29/21 14:42 05/29/21 14:42 Abnormal Lab Results - Last 24 Hours (Table) 05/29/21 Range/Units 15:11 Urine Protein Trace H (Negative) Assessment and Plan (1) 37 weeks gestation of Current Visit: Yes Status: Acute Code(s): Z3A.37 - 37 WEEKS GESTATION OF SNOMED Code(s): 14069138 (2) Gestational hypertension Current Visit: Yes Status: Acute Code(s): O13.9 - GESTATIONAL HTN W/O SIGNIFICANT PROTEINURIA, UNSP TRIMESTER SNOMED Code(s): 54597435 Plan: Admission for induction of labor due to gestational hypertension. Will observe blood pressures this evening and start oxytocin induction of labor in the morning.
[2021-05-30] MEDS ORDERED: LIDOCAINE 1% (PF) 10 MG/ML (30 ML SDV) SQ PRN (03:47)
[2021-05-30] MEDS ORDERED: LIDOCAINE 1% (10MG/ML) FOR IV START INTRADERMA PRN (03:47)
[2021-05-30] MEDS ORDERED: METHYLERGONOVINE 0.2 MG/ML 1 ML AMP IM PRN (03:47)
[2021-05-30] MEDS ORDERED: OXYTOCIN 30 UNITS/500 ML NS 30 UNIT in SALINE 1 500ML.BAG IV SCH ×2 (03:47→06:00)
[2021-05-30] MEDS ORDERED: TERBUTALINE 1 MG/ML VIAL SQ PRN (03:47)
[2021-05-30] MEDS ORDERED: CARBOPROST TROMETHAMINE 250 MCG/ML 1 ML AMP IM PRN (03:47)
[2021-05-30] MEDS ORDERED: OXYTOCIN 10 UNIT/ML 1 ML VIAL IM PRN (03:47)
[2021-05-30 03:48] LABS: INR 0.8 (<1.2); Partial Thromboplastin Time 22.5 sec (22.0-30.0); Prothrombin Time 9.4 sec (9.0-12.0)
[2021-05-30] MEDS ORDERED: LACTATED RINGERS 1,000 ML IV SCH (06:00)
[2021-05-30] MEDS: LACTATED RINGERS 1,000 ML IV SCH ×3 (06:11→22:09)
--- NOTE | 2021-05-30 07:42 | P.MSEPDOC ---
Presenting Problems - Arrival Data Date of Arrival on Unit: 05/29/21 Time of Arrival on Unit: 14:12 Mode of Transport: Ambulatory - Complaint OB-Reason for Admission/Chief Complaint: PIH Comment: sent with script from office Medical History - Information : 3 Para: 0 Term: 0 : 0 Abortions: Spontaneous or Elective: 0 Number of Living Children: 0 - Gestational Age Gestational Age by ALEX (wks/days): 37 Weeks and 4 Days Review of Systems - Review of Systems Constitutional: No problems Breast: No problems ENT: No problems Cardiovascular: No problems Respiratory: No problems Gastrointestinal: No problems Genitourinary: No problems Musculoskeletal: No problems Neurological: No problems Skin: No problems Vital Signs - Temperature Temperature: 97.0 F Temperature Source: Temporal Artery Scan - Pulse Right Brachial Pulse Rate: 93 Pulse Assessment Method: Automatic Cuff - Respirations Respiratory Rate: 16 Oxygen Delivery Method: Room Air O2 Sat by Pulse Oximetry: 99 - Blood Pressure Right Arm Sitting Blood Pressure: 141/92 Blood Pressure Mean: 108 Blood Pressure Source: Automatic Cuff Medical Screen Scoring - Assessment - Baby A Baseline FHR: 135 Heart Rate - NICHD Category: Category II (Indeterminate) Physician Notification - Physician Notified Physician Notified Date: 05/29/21 Physician Notified Time: 17:37 Physician: Jamee Edwards Order Received: Yes - Notification Comment Comment: Admit for observation tonight, IOL in morning, Dr. Valverde to manage tonight. Maternal Triage Index - Scheduled/Requesting Priority 5 Scheduled/Requesting Priority 5: Yes Criteria Met for Priority 5: sent from office with script for PIH work up, no symptoms Disposition - Disposition OB Disposition: Admit, Triage, LDRP Suite I agree with the RN Medical Screening Exam: Yes Case reviewed; plan agreed upon as documented in EMR&OBIX.: Yes Diagnosis: GESTATIONAL HTN W/O SIGNIFICANT PROTEINURIA, THIRD TRIMESTER
[2021-05-30] MEDS ORDERED: BUTORPHANOL 1 MG/ML 1 ML VIAL IV PRN (10:44)
[2021-05-30] MEDS ORDERED: SODIUM CHLORIDE 0.9% 100 ML BAG ONE (13:32)
[2021-05-30] MEDS ORDERED: fentaNYL (PF) 50 MCG/ML 5 ML AMP ONE (13:32)
[2021-05-30] MEDS ORDERED: ROPIVACAINE 5MG/ML 20ML VIAL ONE (13:32)
[2021-05-30] MEDS ORDERED: ceFAZolin 3 GM in SODIUM CHLORIDE 0.9% 100 ML IVPB ONE (22:00)
[2021-05-30] MEDS ORDERED: CITRIC ACID-SODIUM CITRATE 15 ML CUP PO ONE (22:00)
[2021-05-30] MEDS ORDERED: OXYTOCIN 30 UNITS/500 ML NS BAG IV ONE (22:19)
[2021-05-30] MEDS ORDERED: MORPHINE SULFATE (PF) 0.3 MG/0.3 ML SYR ONE (22:19)
[2021-05-30] MEDS ORDERED: PROPOFOL 10 MG/ML 20 ML VIAL IV ONE (22:19)
[2021-05-30] MEDS ORDERED: HYDROmorphone (PF) 1 MG/ML ONE (22:19)
[2021-05-30] MEDS ORDERED: KETOROLAC 15 MG/ML 1 ML VIAL ONE (22:19)
[2021-05-30] MEDS ORDERED: OXYTOCIN 10 UNIT/ML 1 ML VIAL ONE (22:19)
[2021-05-30] MEDS ORDERED: fentaNYL (PF) 50 MCG/ML 2 ML AMP ONE ×2 (22:19)
[2021-05-30] MEDS ORDERED: ONDANSETRON 4 MG/2 ML VIAL ONE (22:19)
[2021-05-30] MEDS ORDERED: SUCCINYLCHOLINE CHLORIDE 100 MG/5 ML SYR IV ONE (22:19)
[2021-05-30] MEDS ORDERED: diphenhydrAMINE 25 MG CAP PO PRN (23:06)
[2021-05-30] MEDS ORDERED: diphenhydrAMINE 50 MG/ML 1 ML VIAL IVP PRN ×2 (23:06)
[2021-05-30] MEDS ORDERED: NALOXONE 0.4 MG/ML 1 ML VIAL IV PRN (23:06)
[2021-05-30] MEDS ORDERED: METOCLOPRAMIDE 5 MG/ML 2 ML VIAL IVP PRN (23:06)
[2021-05-30] MEDS ORDERED: ONDANSETRON 4 MG/2 ML VIAL IVP PRN (23:06)
[2021-05-30] MEDS ORDERED: diphenhydrAMINE 50 MG CAP PO PRN (23:06)
[2021-05-30] MEDS ORDERED: MEASLES-MUMPS-RUBELLA VACC/PF 12,500 UNIT/0.5 ML VIAL SQ ONE (23:06)
[2021-05-30] MEDS ORDERED: ZOLPIDEM 5 MG TAB PO PRN (23:06)
--- NOTE | 2021-05-30 23:13 | P.OP ---
Date of Procedure: 05/30/21 Preoperative Diagnosis: Intrauterine at term: Failed progress: tachycardia Postoperative Diagnosis: Same with nuchal cord 2 Procedure(s) Performed: Primary low transverse section Anesthesia: GETA, spinal Surgeon: Chandler Larios Line Service Technician #1: Jayde Neely Estimated Blood Loss (ml): 480 IV fluids (ml): 700 Urine output (ml): 50 Pathology: other (Placenta) Condition: stable Disposition: floor Operative Findings: Male scores of 7 and 9 at one and 5 minutes respectively weight was 6 lbs. 1 oz. Description of Procedure: Patient was taken to the operating suite where a spinal anesthetic was found to be inadequate. She had epidural was not working it was removed and spinal was attempted but did not work. Therefore general anesthetic was used area she was placed in dorsal supine position with leftward tilt. Initially a Pfannenstiel skin incision was made and this incision was then carried through to underlying layer of the fascia was second knife. Fascia was then nicked in the midline and this opening was extended laterally with Thayer scissors. Superior and inferior aspect of this incision were then grasped tented up and bluntly and sharply dissected off the rectus muscles rectus muscles were then divided the midline and blunt dissection through the peritoneum was performed. This opening was then extended superiorly and inferiorly with good visualization of both bowel bladder. Bladder blade was then placed and bladder flap identified. It was entered with metastases scissors and carried across face uterus. Once it was bluntly dissected out of the operative field knife was used to incise uterus and this incision was fully developed a hemostat and then extended bluntly. Head was then atraumatically delivered and mouth nares were bulb suctioned as the nuchal cord 2 was easily reduced. Anterior posterior shoulders were then easily delivered followed by the remainder the baby. Nursery personnel was present to assume care with the umbilical cord clamped cut usual fashion. Placenta was then delivered intact and Pitocin was added to the IV. Uterus was then exteriorized cleared of clots and debris and closed in 2 layers with 0 Vicryl suture. Once excellent hemostasis was obtained blood and debris was suctioned from the posterior cul-de-sac and uterus was reinserted into the abdomen. Peritoneal layer was then reapproximated with 0 Vicryl suture. Fascial layer was closed with 0 Vicryl suture. One layer of 3-0 Vicryl placed in deep subcuticular tissues to reposited skin and close space. Skin was then closed with 3-0 Vicryl subcuticular. Sponge, lap Needle counts all correct 2. Patient was then taken to the recovery room in stable and satisfactory condition.
[2021-05-31] MEDS ORDERED: HYDROmorphone PCA 10 MG/50 ML BAG IV PRN
[2021-05-31] MEDS ORDERED: Rhogam IMMUNE GLOBULIN 1,500 UNIT/1 ML IM ONE (03:02)
[2021-05-31] MEDS: LACTATED RINGERS 1,000 ML IV SCH ×3 (05:30→15:31)
[2021-05-31] MEDS: KETOROLAC 30 MG/ML 1 ML VIAL IVP SCH ×2 (06:48→07:41)
[2021-05-31 07:54] LABS: Basophils % (A) 0 %; Eosinophils % (A) 0 %; HCT 31.7 % (34.0-46.0); HGB 10.6 gm/dL (11.4-16.0); Lymphocytes # (A) 1.2 k/uL (1.0-4.8); Lymphocytes % (A) 6 %; MCH 30.2 pg (25.0-35.0); MCHC 33.4 g/dL (31.0-37.0); MCV 90.4 fL (80.0-100.0); Mean Platelet Volume 10.9; Monocytes # (A) 0.7 k/uL (0-1.0); Monocytes % (A) 4 %; Neutrophils # (A) 17.7 k/uL (1.3-7.7); Neutrophils % (A) 90 %; Platelet Count 171 k/uL (150-450); RBC 3.51 m/uL (3.80-5.40); RDW 13.1 % (11.5-15.5); WBC 19.7 k/uL (3.8-10.6)
[2021-05-31] MEDS ORDERED: LABETALOL 100 MG TAB PO SCH (09:00)
[2021-05-31] MEDS: SENNOSIDES-DOCUSATE SODIUM 1 EACH TAB PO SCH ×2 (09:38→20:47)
[2021-05-31] MEDS ORDERED: LABETALOL 100 MG TAB PO PRN (09:39)
[2021-05-31] MEDS ORDERED: LANOLIN CREAM 5 GM TUBE TOPICAL PRN (09:47)
[2021-05-31] MEDS ORDERED: SIMETHICONE 80 MG CHEWABLE PO PRN (09:47)
[2021-05-31] MEDS ORDERED: HYDROmorphone 2 MG TAB PO PRN (09:47)
[2021-05-31] MEDS ORDERED: LACTATED RINGERS 1,000 ML IV SCH (10:00)
[2021-05-31] MEDS: ACETAMINOPHEN TAB 500 MG TAB PO SCH ×2 (11:06→17:38)
--- NOTE | 2021-05-31 12:51 | P.PNOBGPC ---
Subjective - Subjective Principal diagnosis: S/P primary section, postop day #1 Interval history: Pt. was seen and examined earlier this morning. Pain well-controlled. No flatus or bowel movement yet. Catheter is out, but she hasn't urinated yet. Working on breast-feeding. Patient reports: Reports appetite normal, Reports pain well controlled [place]: doing well Objective - Vital Signs Latest vital signs: Vital Signs Temp Pulse Resp BP Pulse Ox 05/31/21 08:00 98.2 F 94 18 145/93 98 05/31/21 04:00 98.6 F 92 16 142/90 05/31/21 01:15 96 16 141/87 97 05/31/21 00:45 93 16 142/99 96 05/31/21 00:15 93 16 146/87 96 05/31/21 00:00 95 16 140/82 98 05/30/21 23:45 85 16 138/78 97 05/30/21 23:30 103 H 16 146/84 100 05/30/21 23:15 96.6 F L 103 H 16 146/87 100 Intake and Output 05/30/21 05/31/21 05/31/21 22:59 06:59 14:59 Intake Total 600 Output Total 100 300 Balance -100 300 Intake: Oral 600 Output: Urine 100 300 Uretheral (Vazquez) 300 Other: Voiding Method Indwelling Catheter - Exam Extremities: Present: normal. Absent: tenderness Abdomen: Present: normal appearance, soft (+bowel sounds x 4), tenderness (minimal). Absent: distention Incision: Present: normal, dry, intact. Absent: erythematous Uterus: Present: normal, firm. Absent: tenderness - Labs Labs: Abnormal Lab Results - Last 24 Hours (Table) 05/31/21 Range/Units 07:27 WBC 19.7 H (3.8-10.6) k/uL RBC 3.51 L (3.80-5.40) m/uL Hgb 10.6 L (11.4-16.0) gm/dL Hct 31.7 L (34.0-46.0) % Neutrophils # 17.7 H (1.3-7.7) k/uL Assessment and Plan Assessment: S/P primary low transverse section due to failure to progress and tachycardia POD#1 Gestational HTN, no severe BPs. (1) 37 weeks gestation of Current Visit: Yes Status: Acute Code(s): Z3A.37 - 37 WEEKS GESTATION OF SNOMED Code(s): 25649561 (2) Gestational hypertension Current Visit: Yes Status: Acute Code(s): O13.9 - GESTATIONAL HTN W/O SIGNIFICANT PROTEINURIA, UNSP TRIMESTER SNOMED Code(s): 18918578 Plan: Cont. with postop care. Encouraged ambulation. Will switch to oral pain medications. Advance diet as tolerated after flatus. Will continue to observe blood pressures.
[2021-05-31] MEDS: IBUPROFEN 600 MG TAB PO SCH ×2 (14:17→20:47)
[2021-06-01] MEDS: ACETAMINOPHEN TAB 500 MG TAB PO SCH ×4 (01:05→22:14)
[2021-06-01] MEDS: IBUPROFEN 600 MG TAB PO SCH ×3 (06:24→19:28)
[2021-06-01 07:36] LABS: Basophils % (A) 0 %; Eosinophils # (A) 0.1 k/uL (0-0.7); Eosinophils % (A) 1 %; HCT 32.9 % (34.0-46.0); HGB 10.4 gm/dL (11.4-16.0); Lymphocytes # (A) 1.7 k/uL (1.0-4.8); Lymphocytes % (A) 15 %; MCH 28.9 pg (25.0-35.0); MCHC 31.7 g/dL (31.0-37.0); MCV 91.1 fL (80.0-100.0); Mean Platelet Volume 9.8; Monocytes # (A) 0.4 k/uL (0-1.0); Monocytes % (A) 4 %; Neutrophils # (A) 9.3 k/uL (1.3-7.7); Neutrophils % (A) 79 %; Platelet Count 173 k/uL (150-450); RBC 3.61 m/uL (3.80-5.40); RDW 13.8 % (11.5-15.5); WBC 11.8 k/uL (3.8-10.6)
--- NOTE | 2021-06-01 08:01 | P.PNOBGPC ---
Subjective - Subjective Principal diagnosis: Status post primary low transverse section postoperative day #2 Interval history: Patient is doing better today. She is passing flatus and bowel movement. She is urinating without difficulty. Her lochia is minimal. She is working on crista ast-feeding. She does complain of some leg swelling. She denies headaches, blurry vision, or epigastric pain. Patient reports: Reports appetite normal, Reports voiding normally, Reports pain well controlled, Reports ambulating normally : doing well, nursing well Objective - Vital Signs Latest vital signs: Vital Signs Temp Pulse Resp BP Pulse Ox 06/01/21 04:00 98.6 F 87 16 130/70 06/01/21 00:00 96.8 F L 91 16 158/82 97 05/31/21 19:16 97.9 F 63 16 133/85 99 05/31/21 16:00 97.4 F L 96 18 143/94 100 05/31/21 12:00 97.9 F 89 18 153/98 95 05/31/21 08:00 98.2 F 94 18 145/93 98 Intake and Output 05/31/21 06/01/21 06/01/21 22:59 06:59 14:59 Output Total 200 Balance -200 Output: Urine 200 - Exam Extremities: Present: edema (2+ pitting). Absent: tenderness Abdomen: Present: normal appearance, soft (Positive bowel sounds 4). Absent: distention, tenderness Incision: Present: normal, dry, intact. Absent: erythematous Uterus: Present: normal, firm. Absent: tenderness - Labs Labs: Abnormal Lab Results - Last 24 Hours (Table) 06/01/21 Range/Units 07:02 WBC 11.8 H (3.8-10.6) k/uL RBC 3.61 L (3.80-5.40) m/uL Hgb 10.4 L (11.4-16.0) gm/dL Hct 32.9 L (34.0-46.0) % Neutrophils # 9.3 H (1.3-7.7) k/uL Assessment and Plan Assessment: Status post primary low transverse section postoperative day #2 Gestational hypertension-no severe category blood pressures (1) 37 weeks gestation of Current Visit: Yes Status: Acute Code(s): Z3A.37 - 37 WEEKS GESTATION OF SNOMED Code(s): 31408482 (2) Gestational hypertension Current Visit: Yes Status: Acute Code(s): O13.9 - GESTATIONAL HTN W/O SIGNIFICANT PROTEINURIA, UNSP TRIMESTER SNOMED Code(s): 05548537 Plan: Continue with postoperative and care today. Will plan for discharge most likely tomorrow. Dr. Larios will be covering the rest of today and the weekend. Patient is advised to follow up in approximately 1 week in the office for a blood pressure and post operative check.
[2021-06-01] MEDS: SENNOSIDES-DOCUSATE SODIUM 1 EACH TAB PO SCH ×2 (09:53→19:37)
[2021-06-02] MEDS: ACETAMINOPHEN TAB 500 MG TAB PO SCH ×2 (04:54→11:02)
[2021-06-02] MEDS: IBUPROFEN 600 MG TAB PO SCH ×3 (04:54→11:03)
[2021-06-02] MEDS: SENNOSIDES-DOCUSATE SODIUM 1 EACH TAB PO SCH (08:49)
[2021-06-02 09:31] VITALS: BP 152/99; PULSE 92; RESP 18; TEMP 98.1
--- NOTE | 2021-06-02 10:30 | P.DS ---
Providers Date of admission: 05/29/21 17:51 Expected date of discharge: 06/02/21 Attending physician: Jamee Edwards Primary care physician: Stated None Assessment: Gayla is doing very well post op day 3. She is ambulating, voiding and tolera ting her diet. She voices no complaints. Her vital signs are stable and afebrile. Heart is regular, lungs are clear, extremities without pain. Abdomen soft and uterus is firm below the umbilicus. Incision is intact is clean and dry there is no other abnormal findings. Prescription for Motrin was Micha sent to the pharmacy. She requests nothing stronger. She is instructed to call the office on Friday and make a follow-up appointment with Dr. Jon aguilar for an incision check and make sure that or other concerns or problems in the next week. Patient Condition at Discharge: Good Plan - Discharge Summary New Discharge Prescriptions: New Ibuprofen [Motrin] 600 mg PO Q6H #60 tab Discharge Medication List Ibuprofen [Motrin] 600 mg PO Q6H #60 tab 06/01/21 [Rx] Follow up Appointment(s)/Referral(s): Jamee Edwards DO [Doctor of Osteopathic Medicine] - 1 Week (Postop and blood pressure check appointment 06-07-2021 at 11:30) Activity/Diet/Wound Care/Special Instructions: Instructions 1. Do not begin any exercise program for 3 weeks. 2. Do not resume sexual relations for 3 weeks or longer if uncomfortable. 3. You may take tub baths or showers at any time. 4. You may use tampons if desired after 3 weeks. 5. Keep the area of episiotomy (stitches) clean and dry. 6. If you are not nursing, wear a good fitting, supportive bra during the day and limit fluid intake for at least 1 week to prevent breast engorgement. 7. Call the office, [phone], within the next week to make appointment for your 6 week checkup if it has not already been made. 8. Report any of the following occurrences to the doctor promptly: a. Heavy, excessive bleeding b. Chills, fever c. Burning or frequency of urination d. Pain or redness and breasts if nursing e. Increasing pain or swelling in episiotomy (stitches). In addition to the above instructions, the following additional should be followed: 1. No heavy lifting or straining (exercising) until after 6 week checkup. 2. Keep abdominal incision clean and dry: You may wear a dressing if more comfortable. 3. Make office appointment for 10 days after going home or as instructed by her doctor. Discharge Disposition: HOME SELF-CARE
== END 2021-06-02 11:12 | disposition home or self-care (01) | DRG 787 ==
LOC: FBPOP 14:12 → 4FBP 17:51
PROVIDERS: ADMIT Obstetrics & Gynecology; ATTEND Obstetrics & Gynecology
PROC: 4A0HXCZ Measurement of Products of Conception, Cardiac Rate, External Approach (ICD-10-PCS; 2021-05-30)
PROC: 10D00Z1 Extraction of Products of Conception, Low, Open Approach (ICD-10-PCS; principal; 2021-05-30 22:19)
DX: O13.4 Gestational [pregnancy-induced] hypertension without significant proteinuria, complicating childbirth (principal); O98.32 Other infections with a predominantly sexual mode of transmission complicating childbirth; O62.0 Primary inadequate contractions; O76 Abnormality in fetal heart rate and rhythm complicating labor and delivery; O69.81X0 Labor and delivery complicated by cord around neck, without compression, not applicable or unspecified; F32.A Depression, unspecified; F41.9 Anxiety disorder, unspecified; O99.344 Other mental disorders complicating childbirth; Z37.0 Single live birth; Z3A.37 37 weeks gestation of pregnancy; Z87.891 Personal history of nicotine dependence; Z86.19 Personal history of other infectious and parasitic diseases
CPT/HCPCS: 59025; 81003; 82565; 82570; 83615; 84156; 84450; 84460; 84520; 84550; 85025; 85461; 85610; 85730; 86850; 86900; 86901

== ENCOUNTER 2023-08-30 14:48 | Emergency (ER) | payer OTHER ==
[2023-08-30] MEDS: BACITRACIN OINT 1 EACH PACKET TOPICAL ONE (16:35)
[2023-08-30] MEDS: ACETAMINOPHEN TAB 500 MG TAB PO STA (16:35)
[2023-08-30] MEDS: DIPH,PERTUS(ACELL)TETVAC-LF 0.5 ML VIAL IM ONE (16:36)
[2023-08-30] MEDS: LIDOCAINE 1% INJ 10MG/ML (20 ML MDV) SQ ONE (16:36)
[2023-08-30 17:01] VITALS: PULSE 86; TEMP 97.9
--- NOTE | 2023-08-30 17:59 | ED ---
General Adult HPI - General Chief complaint: Wound/Laceration Stated complaint: left hand laceration-work comp Time Seen by Provider: 08/30/23 15:53 Source: patient Mode of arrival: ambulatory Limitations: no limitations - History of Present Illness Initial comments: 22-year-old female presents to the ED with a chief complaint of laceration. Patient states she works at [employer] and was trying to put a plate away. States during this the plate fell and while trying to catch it excellently smacked it against the ground causing it to shatter, cutting her left hand. No other injuries at this time. Tetanus status not up-to-date. - Related Data Previous Rx's Medication Instructions Recorded Ibuprofen [Motrin] 600 mg PO Q6H #60 tab 06/01/21 Cephalexin [Keflex] 500 mg PO Q6HR 7 Days #28 cap 08/30/23 Allergies Allergy/AdvReac Type Severity Reaction Status Date / Time No Known Allergies Allergy Verified 05/29/21 14:24 Review of Systems ROS Statement: Those systems with pertinent positive or pertinent negative responses have been documented in the HPI. ROS Other: All systems not noted in ROS Statement are negative. Past Medical History Past Medical History: No Reported History History of Any Multi-Drug Resistant Organisms: None Reported Past Surgical History: Section Past Anesthesia/Blood Transfusion Reactions: No Reported Reaction Past Psychological History: Anxiety, Depression Smoking Status: Former smoker Past Alcohol Use History: Occasional Past Drug Use History: Marijuana - Past Family History Brother(s) Additional Family Medical History / Comment(s): Autism General Exam Limitations: no limitations General appearance: alert, in no apparent distress Head exam: Present: atraumatic, normocephalic Eye exam: Present: normal appearance Neck exam: Present: normal inspection Respiratory exam: Present: normal lung sounds bilaterally Cardiovascular Exam: Present: regular rate GI/Abdominal exam: Present: soft Extremities exam: Present: other (4 cm laceration on the palmar aspect of the left hand with, linear. No foreign bodies identified.) Neurological exam: Present: alert, oriented X3 Skin exam: Present: warm, dry Course Vital Signs 08/30/23 15:43 Temperature 97.9 F Pulse Rate 86 Respiratory 18 Rate Blood Pressure 139/96 O2 Sat by Pulse 98 Oximetry Procedures - Laceration Laceration #1 Indication: laceration Site: hand Description: linear, clean Depth: simple, single layer Sedation/Analgesia: none Anesthetic Used: lidocaine 1%, without epi Anesthesia Technique: local infiltration Amount (mls): 3 Pre-repair: wound explored, irrigated extensively, deep structures intact Type of Sutures: nylon Size of Sutures: 5-0 Number of Sutures: 7 Technique: simple, interrupted Patient Tolerated Procedure: well, no complications Medical Decision Making - Medical Decision Making Was pt. sent in by a medical professional or institution ([facility]ines, [employer], urgent care, hospital, or [facility]...) When possible be specific @ -No Did you speak to anyone other than the patient for history (EMS, parent, family, police, friend...)? What history was obtained from this source @ -No Did you review nursing and triage notes (agree or disagree)? Why? @ -I reviewed and agree with nursing and triage notes Were old charts reviewed (outside hosp., previous admission, EMS record, old EKG, old radiological studies, urgent care reports/EKG's, [facility] records)? Report findings @ -No old charts were reviewed Differential Diagnosis (chest pain, altered mental status, abdominal pain women, abdominal pain men, vaginal bleeding, weakness, fever, dyspnea, syncope, headache, dizziness, GI bleed, back pain, seizure, CVA, palpatations, mental health, musculoskeletal)? @ -Differential Musculoskeletal Muscular strain, contusion, ligament sprain, fracture, arthritis, septic arthritis, bursitis, cellulitis, muscle spasm, nerve compression, DVT, arterial occlusion, herpes zoster, electrolyte abnormality, tumor.... This is not meant to be in all inclusive list EKG interpreted by me (3pts min.). @ -None X-rays interpreted by me (1pt min.). @ -None done CT interpreted by me (1pt min.). @ -None done U/S interpreted by me (1pt. min.). @ -None done What testing was considered but not performed or refused? (CT, X-rays, U/S, labs)? Why? @ -None What meds were considered but not given or refused? Why? @ -None Did you discuss the management of the patient with other professionals (professionals i.e. [facility]ER[facility] Hines, [employer], lab, RT, psych nurse, home health care social worker, pharmacy technician, teacher, credit administration officer, pillowcase cleaner)? Give summary @ -No Was smoking cessation discussed for >3mins.? @ -No Was critical care preformed (if so, how long)? @ -No Were there social determinants of health that impacted care today? How? (Homelessness, low income, unemployed, alcoholism, drug addiction, transportation, low edu. Level, literacy, decrease access to med. care, assisted, rehab)? @ -No Was there de-escalation of care discussed even if they declined (Discuss DNR or withdrawal of care, Hospice)? DNR status @ -No What co-morbidities impacted this encounter? (DM, HTN, Smoking, COPD, CAD, Cancer, CVA, ARF, Chemo, Hep., AIDS, mental health diagnosis, sleep apnea, morbid obesity)? @ -None Was patient admitted / discharged? Hospital course, mention meds given and route, prescriptions, significant lab abnormalities, going to OR and other pertinent info. @ -Discharge 22-year-old female presenting to the ED with complaints of left hand laceration. Tetanus was updated. Laceration was repaired. For further details please see procedure note. Wound was covered with bacitracin ointment and dressed. Discharged home in stable condition with prescription for Keflex. Discussed return precautions with patient who verbalized agreement. Undiagnosed new problem with uncertain prognosis? @ -No Drug Therapy requiring intensive monitoring for toxicity (Heparin, Nitro, Insulin, Cardizem)? @ -No Were any procedures done? @ -Yes, laceration repair Diagnosis/symptom? @ -Laceration, left hand Acute, or Chronic, or Acute on Chronic? @ -Acute Uncomplicated (without systemic symptoms) or Complicated (systemic symptoms)? @ -Uncomplicated Side effects of treatment? @ -No Exacerbation, Progression, or Severe Exacerbation? @ -No Poses a threat to life or bodily function? How? (Chest pain, [place], [place], pneumonia, PE, COPD, DKA, ARF, appy, cholecystitis, CVA, Diverticulitis, Homicidal, Suicidal, threat to staff... and all critical care pts) @ -No Disposition Clinical Impression: Laceration Disposition: HOME SELF-CARE Condition: Good Instructions (If sedation given, give patient instructions): Care For Your Stitches (ED) Additional Instructions: Please return to the Emergency Department if symptoms worsen or any other concerns. Monitor for signs of infection. Return in 10 to 14 days for suture removal. Prescriptions: Cephalexin [Keflex] 500 mg PO Q6HR 7 Days #28 cap Is patient prescribed a controlled substance at d/c from ED?: No Referrals: None,Stated [Primary Care Provider] - 1-2 days Time of Disposition: 18:03
[2023-08-30 18:17] VITALS: BP 140/81; RESP 16
== END 2023-08-30 18:08 | disposition home or self-care (01) ==
LOC: EC 14:48
DX: S61.412A Laceration without foreign body of left hand, initial encounter (principal); F12.90 Cannabis use, unspecified, uncomplicated; Z87.891 Personal history of nicotine dependence; Z23 Encounter for immunization; W45.8XXA Other foreign body or object entering through skin, initial encounter
CPT/HCPCS: 90715; 99282; 90471; 12001; J2001

== ENCOUNTER → 2024-02-13 | Outpatient (CLI) | payer OTHER ==
--- NOTE | 2024-02-13 13:04 | CT ---
EXAMINATION TYPE: CT abdomen pelvis w con CT DLP: 1844 mGycm, Automated exposure control for dose reduction was used. DATE OF EXAM: 02/13/2024 9:29 AM COMPARISON: CT abdomen pelvis 02/17/2019 CLINICAL INDICATION:Female, 23 years old with history of R10.32 LEFT LOWER QUADRANT PAIN; lower abdom inal pain, bloating, fatigue x6 years TECHNIQUE: Standard CT of the abdomen and pelvis following the administration of 100 cc of Isovue 3 00 IV contrast material and oral contrast. Coronal and sagittal reformats were performed. FINDINGS: LOWER CHEST: Unremarkable ABDOMEN LIVER: Unremarkable GALLBLADDER AND BILE DUCTS: Unremarkable. PANCREAS: Unremarkable. SPLEEN: Unremarkable. ADRENAL GLANDS: Unremarkable. KIDNEYS AND URETERS: No evidence of hydronephrosis or renal calculus. The kidneys enhance symmetrical ly. Contrast is demonstrated within both collecting systems on the delayed phase. PELVIS BLADDER: Unremarkable REPRODUCTIVE: Tripp anteverted uterus. Left ovarian corpus cyst. ABDOMEN & PELVIS STOMACH AND BOWEL: Stomach and duodenum are unremarkable. Enteric contrast reaches the rectum. Mild d ilation of the distal appendix measuring up to 9 mm. There is hyperdense material demonstrated within the appendix which may represent contrast versus appendicoliths. Mild surrounding fat stranding iden tified (series 3, image 50). No significant wall thickening identified. No evidence of bowel obstruct ion. PERITONEUM: No evidence of pneumoperitoneum or free fluid. VASCULATURE: No evidence of aortic aneurysm. MUSCULOSKELETAL: No acute osseous abnormalities LYMPH NODES: No pathologically enlarged lymph nodes. A few mildly prominent right lower quadrant mese nteric lymph nodes identified which are likely reactive. SOFT TISSUE/ABDOMINAL WALL: Unremarkable IMPRESSION: Mildly dilated appendix with surrounding fat stranding. Hyperdense material demonstrated which may re present appendicoliths and/or enteric contrast. No significant wall thickening identified or surround ing fluid collections. Findings raise concern for mild acute uncomplicated appendicitis. Surgical con sultation is recommended. [facility], , 02/13/2024 1:02 PM
== END | disposition home or self-care (01) ==
LOC: RADCTMAIN 07:41
PROVIDERS: ATTEND Family Medicine
DX: R10.32 Left lower quadrant pain (principal)
CPT/HCPCS: 74177